=== PATIENT | female | born 1965 | race Hispanic/Latino ===

== ENCOUNTER 2017-05-22 12:00 | Emergency (ER) | payer MEDICAID ==
[2017-05-22 12:05] VITALS: BMI 29.2
[2017-05-22 12:45] LABS: BASO # 0.05 K/mm3 (0.0-2.0); BASO % 0.7 % (0.0-3.0); EOS # 0.1 (0.0-0.7); EOS % 1.5 % (1.5-5.0); GRAN # 4.49 (1.4-6.5); GRAN % 67.2 % (50.0-68.0); LYMPH # 1.6 (1.2-3.4); LYMPH % 24.5 % (22.0-35.0); MEAN CELL VOLUME 90.7 fl (80.0-105.0); MEAN CORPUSCULAR HEMOGLOBIN 32.6 pg (25.0-35.0); MEAN PLATELET VOLUME 10.9 fl (7.0-11.0); MONO # 0.4 (0.1-0.6); MONO % 6.1 % (1.0-6.0); WHITE BLOOD COUNT 6.7 10^3/ul (4.5-11.0)
[2017-05-22 12:54] LABS: URINE BILIRUBIN NEGATIVE (NEGATIVE); URINE BLOOD LARGE (NEGATIVE); URINE GLUCOSE (UA) NEGATIVE (NEGATIVE); URINE KETONE NEGATIVE (NEGATIVE); URINE LEUKOCYTE ESTERASE NEGATIVE Leu/uL (NEGATIVE); URINE PROTEIN 30 mg/dL (<30 mg/dL); URINE UROBILINOGEN 0.2 E.U./dL (<1 E.U./dL)
[2017-05-22 12:57] LABS: URINE COLOR YELLOW (YELLOW)
[2017-05-22 13:04] LABS: URINE APPEARANCE CLEAR (CLEAR); URINE WBC 0 - 2 /hpf (0-6)
[2017-05-22 13:05] LABS: URINE BACTERIA FEW (NEG)
--- NOTE | 2017-05-22 13:41 | CARD ---
APPROVED REPORT EKG Measurement Heart [id number] [id number] <Conclusion> Normal sinus rhythm PRWP NSSTW changes
--- NOTE | 2017-05-22 14:47 | ED PDOC ---
Arrival/HPI - General Chief Complaint: Chest Pain Time Seen by Provider: 05/22/17 12:08 Historian: Patient - History of Present Illness Narrative History of Present Illness (Text): 05/22/17 Mellisa Saravia is a 51 year old female, whose past medical history includes hypertension and COPD, who presents to the emergency department complaining of intermittent chest pain for several months. Patient reports also having a dry cough. She notes going to the PMD today who gave her an Aspirin and advised her to come to the emergency department for evaluation. Patient denies shortness of breath, fever, dizziness, or other complaints. Time/Duration: Other (several months) Symptom Course: Unchanged, Intermittent Past Medical History - Provider Review Nursing Documentation Reviewed: Yes - Tetanus Immunization Tetanus Immunization: Unknown - Reproductive Menopause: Yes - Cardiac Hx Cardiac Disorders: No Hx Hypertension: Yes - Pulmonary Hx Respiratory Disorders: Yes Hx Chronic Obstructive Pulmonary Disease (COPD): Yes Hx Emphysema: Yes - Neurological Hx Neurological Disorder: No - HEENT Hx HEENT Disorder: No - Renal Hx Renal Disorder: No - Endocrine/Metabolic Hx Endocrine Disorders: No Other/Comment: GOut - Hematological/Oncological Hx Blood Disorders: No - Integumentary Hx Dermatological Disorder: No - Musculoskeletal/Rheumatological Hx Musculoskeletal Disorders: No - Gastrointestinal Hx Diverticulitis: Yes - Genitourinary/Gynecological Hx Genitourinary Disorders: No - Psychiatric Hx Psychophysiologic Disorder: No Hx Depression: No Hx Emotional Abuse: No Hx Physical Abuse: No Hx Substance Use: No - Surgical History Hx Appendectomy: Yes Other/Comment: ectopic /colon. surgery for diverticulitis - Anesthesia Hx Anesthesia: Yes Hx Anesthesia Reactions: No - Suicidal Assessment Feels Threatened In Home Enviroment: No Family/Social History - Physician Review Nursing Documentation Reviewed: Yes Family/Social History: Unknown Family HX Smoking Status: Former Smoker Hx Alcohol Use: No Hx Substance Use: No Hx Substance Use Treatment: No Allergies/Home Meds Allergies/Adverse Reactions: Allergies levofloxacin Allergy (Verified 05/22/17 12:05) ANAPHYLAXIS Penicillins Allergy (Verified 05/22/17 12:05) ANAPHYLAXIS Home Medications: Home Meds Medication Instructions Recorded Confirmed Allopurinol [Zyloprim] 300 mg PO PRN PRN 03/12/16 05/22/17 Review of Systems - Physician Review All systems were reviewed & negative as marked: Yes - Review of Systems Constitutional: absent: Fevers Respiratory: Cough (dry). absent: SOB Cardiovascular: Chest Pain (intermittent for several months) Neurological: absent: Dizziness Physical Exam Vital Signs Reviewed: Yes Vital Signs Temp Pulse Resp BP Pulse Ox 05/22/17 16:43 75 20 132/87 96 05/22/17 16:00 98.9 F 90 20 143/92 H 97 05/22/17 14:13 72 20 130/88 98 05/22/17 12:10 69 22 146/86 95 Blood Pressure: Normal Pulse: Regular Respiratory Rate: Normal Appearance: Positive for: Well-Appearing, Non-Toxic, Comfortable Pain Distress: None Mental Status: Positive for: Alert and Oriented X 3 - Systems Exam Head: Present: Atraumatic, Normocephalic Pupils: Present: PERRL Extroacular Muscles: Present: EOMI Conjunctiva: Present: Normal Respiratory/Chest: Present: Clear to Auscultation, Good Air Exchange. No: Respiratory Distress, Accessory Muscle Use Cardiovascular: Present: Regular Rate and Rhythm, Normal S1, S2. No: Murmurs Abdomen: Present: Normal Bowel Sounds. No: Tenderness, Distention, Peritoneal Signs Lower Extremity: Present: Normal Inspection. No: Edema Neurological: Present: GCS=15, CN II-XII Intact, Speech Normal Skin: Present: Warm, Dry, Normal Color. No: Rashes Psychiatric: Present: Alert, Oriented x 3, Normal Insight, Normal Concentration Medical Decision Making ED Course and Treatment: 05/22/17 Impression: 51 year old female with intermittent chest pain for several months. Clear on physical exam. Plan: -- EKG -- Chest X-ray -- Labs -- Urinalysis -- Reassess and disposition Progress Notes: EKG: Ordered, reviewed, and independently interpreted the EKG. Rate : 66 BPM Rhythm : NSR Interpretation : No ST-segment elevations or depressions, no T-wave inversions, normal intervals. 05/22/17 16:44: Spoke to Dr. Franco who revised the case. Patient will be discharged and will call in 2 day to set up an appointment. Patient was advised to take baby aspirin daily. - Lab Interpretations Lab Results: 05/22/17 12:30 05/22/17 15:15 Lab Results 05/22/17 15:15: Sodium 140, Potassium 4.1, Chloride 105, Carbon Dioxide 28, Anion Gap 11, BUN 16, Creatinine 0.7, Est GFR ( Amer) > 60, Est GFR (Non- Af Amer) > 60, Random Glucose 88, Calcium 9.6, Magnesium 1.8, Total Bilirubin 1.0, AST 26, ALT 38, Alkaline Phosphatase 74, Lactate Dehydrogenase 517, Total Creatine Kinase 36, Troponin I < 0.01, Total Protein 7.2, Albumin 4.2, Globulin 2.9, Albumin/Globulin Ratio 1.5 05/22/17 12:44: Urine Color Yellow, Urine Appearance Clear, Urine pH 6.0, Ur Specific [place] 1.025, Urine Protein 30 H, Urine Glucose (UA) Negative, Urine Ketones Negative, Urine Blood Large H, Urine Nitrate Negative, Urine Bilirubin Negative, Urine Urobilinogen 0.2, Ur Leukocyte Esterase Negative, Urine RBC 10 - 15, Urine WBC 0 - 2, Ur Epithelial Cells 1 - 3, Urine Bacteria Few 05/22/17 12:30: WBC 6.7, RBC 4.63, Hgb 15.1, Hct 42.0, MCV 90.7, MCH 32.6, MCHC 36.0, RDW 14.0, Plt Count 224, MPV 10.9, Gran % 67.2, Lymph % (Auto) 24.5, [place] % (Auto) 6.1 H, Eos % (Auto) 1.5, Baso % (Auto) 0.7, Gran # 4.49, Lymph # 1.6, [place] # 0.4, Eos # 0.1, Baso # 0.05 I have reviewed the lab results: Yes - RAD Interpretation Radiology Orders: 05/22/17 12:13 CHEST PORTABLE [RAD] Stat Shook Splicer: Radiologist - EKG Interpretation Interpreted by ED Physician: Yes Type: 12 lead EKG - Scribe Statement The provider has reviewed the documentation as recorded by the Chetnaibindira Rodarte Provider Scribe Attestation: All medical record entries made by the Scribe were at my direction and personally dictated by me. I have reviewed the chart and agree that the record accurately reflects my personal performance of the history, physical exam, medical decision making, and the department course for this patient. I have also personally directed, reviewed, and agree with the discharge instructions and disposition. Disposition/Present on Arrival - Present on Arrival Any Indicators Present on Arrival: No History of DVT/PE: No History of Uncontrolled Diabetes: No Urinary Catheter: No History of Decub. Ulcer: No History Surgical Site Infection Following: None - Disposition Have Diagnosis and Disposition been Completed?: Yes Diagnosis: Non-cardiac chest pain, Cough Disposition: HOME/ ROUTINE Disposition Time: 14:45 Condition: GOOD Discharge Instructions (ExitCare): Chest Pain (ED) Additional Instructions: Thank you for letting us take care of you today. The emergency medical care you received today was directed at your acute symptoms. If you were prescribed any medication, please fill it and take as directed. It may take several days for your symptoms to resolve. Return to the Emergency Department if your symptoms worsen, do not improve, or if you have any other problems. Please contact your doctor or call one of the physicians/clinics you have been referred to that are listed on the Patient Visit Information form that is included in your discharge packet. Bring any paperwork you were given at discharge with you along with any medications you are taking to your follow up visit. Our treatment cannot replace ongoing medical care by a primary care provider (PCP) outside of the emergency department. Thank you for allowing the [facility] team to be part of your care today. Start taking a baby aspirin (81mg) a day. Follow up with Dr. Franco in 2 days for re-evaluation and further management. Prescriptions: Benzonatate [Tessalon Perle] 100 mg PO Q8 PRN #20 capsule PRN Reason: Cough Referrals: Tiburcio Franco MD [Primary Care Provider] - Follow up with primary Forms: [employer] (Swazi)
--- NOTE | 2017-05-22 14:55 | RAD ---
HISTORY: Chest pain. Portable study 14:54. COMPARISON: 07/28/2016 FINDINGS: LUNGS: Resolution of right upper lobe infiltrate seen previously. No active pulmonary disease. PLEURA: No significant pleural effusion identified, no pneumothorax apparent. CARDIOVASCULAR: Normal. OSSEOUS STRUCTURES: No significant abnormalities. VISUALIZED UPPER ABDOMEN: Normal. OTHER FINDINGS: None. IMPRESSION: No active disease.
[2017-05-22 15:35] LABS: ALB/GLOB RATIO 1.5 (1.1-1.8); ALKALINE PHOSPHATASE 74 U/L (38-126); ALT/SGPT 38 U/L (7-56); AST/SGOT 26 U/L (14-36); BLOOD UREA NITROGEN 16 mg/dL (7-21); CALCIUM 9.6 mg/dL (8.4-10.5); CARBON DIOXIDE 28 mmol/L (21-33); CHLORIDE 105 mmol/L (98-107); GFR AFRICAN-AMERICAN > 60; GLUCOSE,RANDOM 88 mg/dL (70-110); MAGNESIUM 1.8 mg/dL (1.7-2.2); POTASSIUM 4.1 mmol/L (3.6-5.0); SODIUM 140 mmol/L (132-148); TOTAL PROTEIN 7.2 g/dL (5.8-8.3)
[2017-05-22 15:46] LABS: TROPONIN I < 0.01 ng/mL
[2017-05-22 16:12] VITALS: TEMP 98.9
[2017-05-22 16:13] VITALS: RESP 20
[2017-05-22 16:44] VITALS: BP 132/87; PULSE 75; O2SAT 96
== END 2017-05-22 16:57 | disposition home or self-care (01) ==
LOC: ED 12:00
DX: R07.89 Other chest pain (principal); R05 Cough; I10 Essential (primary) hypertension; Z87.891 Personal history of nicotine dependence

== ENCOUNTER 2018-07-18 10:52 | Emergency (ER) | payer MEDICAID ==
[2018-07-18 10:53] VITALS: BMI 29.2
[2018-07-18 11:22] VITALS: TEMP 98.4
--- NOTE | 2018-07-18 12:28 | ED PDOC ---
Arrival/HPI - General Chief Complaint: Abdominal Pain Time Seen by Provider: 07/18/18 11:02 Historian: Patient - History of Present Illness Narrative History of Present Illness (Text): 07/18/18 12:21 53yo female with pmhx of hypertension and COPD who present with complaint of right sided lower back pain x 3days. States pain is sharp, constant and worse with movement. States her urine appeared "like it had blood in it 2days ago". +Urinary frequency. Report history of renal stone. States she took Naprosyn yesterday with some relieve. Report lifting a heavy mattress the day her pain started. Denies dysuria, focal weakness, fecal/urinary incontinence, fever, chills, abdominal pain, nausea, vomiting, diarrhea, any other complaint. Past Medical History - Provider Review Nursing Documentation Reviewed: Yes - Infectious Disease Hx of Infectious Diseases: None - Tetanus Immunization Tetanus Immunization: Unknown - Reproductive Menopause: No - Cardiac Hx Hypertension: Yes - Pulmonary Hx Chronic Obstructive Pulmonary Disease (COPD): Yes Hx Emphysema: Yes - Neurological Hx Neurological Disorder: No - HEENT Hx HEENT Disorder: No - Renal Hx Renal Disorder: No - Endocrine/Metabolic Hx Endocrine Disorders: No Other/Comment: GOut - Hematological/Oncological Hx Blood Disorders: No - Integumentary Hx Dermatological Disorder: No - Musculoskeletal/Rheumatological Hx Falls: No - Gastrointestinal Hx Diverticulitis: Yes - Genitourinary/Gynecological Hx Genitourinary Disorders: No - Psychiatric Hx Psychophysiologic Disorder: No Hx Depression: No Hx Emotional Abuse: No Hx Physical Abuse: No Hx Substance Use: No - Surgical History Other/Comment: ectopic /colon. surgery for diverticulitis - Anesthesia Hx Anesthesia Reactions: No Hx Malignant Hyperthermia: No - Suicidal Assessment Feels Threatened In Home Enviroment: No Family/Social History - Physician Review Nursing Documentation Reviewed: Yes Family/Social History: Unknown Family HX Smoking Status: Former Smoker Hx Alcohol Use: No Hx Substance Use: No Hx Substance Use Treatment: No Allergies/Home Meds Allergies/Adverse Reactions: Allergies levofloxacin Allergy (Verified 07/18/18 11:22) ANAPHYLAXIS Penicillins Allergy (Verified 07/18/18 11:22) ANAPHYLAXIS Home Medications: Home Meds Medication Instructions Recorded Confirmed RX: Allopurinol [Zyloprim] 300 mg PO PRN PRN 03/12/16 05/22/17 RX: Fluticasone Propionate 1 puff NEB TID PRN 06/08/18 06/08/18 [Clarispray] Review of Systems - Physician Review All systems were reviewed & negative as marked: Yes - Review of Systems Constitutional: Normal Eyes: Normal ENT: Normal Respiratory: Normal Cardiovascular: Normal Gastrointestinal: Normal Genitourinary Female: Normal Musculoskeletal: Back Pain Skin: Normal Neurological: Normal Endocrine: Normal Hemo/Lymphatic: Normal Psychiatric: Normal Physical Exam Vital Signs Reviewed: Yes Vital Signs Temp Pulse Resp BP Pulse Ox 07/18/18 11:18 98.4 F 85 16 162/119 H 100 Temperature: Afebrile Blood Pressure: Hypertensive Pulse: Regular Respiratory Rate: Normal Appearance: Positive for: Well-Appearing, Non-Toxic, Comfortable Pain Distress: None Mental Status: Positive for: Alert and Oriented X 3 - Systems Exam Head: Present: Atraumatic, Normocephalic Pupils: Present: PERRL Extroacular Muscles: Present: EOMI Conjunctiva: Present: Normal Mouth: Present: Moist Mucous Membranes Neck: Present: Normal Range of Motion Respiratory/Chest: Present: Clear to Auscultation, Good Air Exchange. No: Respiratory Distress, Accessory Muscle Use Cardiovascular: Present: Regular Rate and Rhythm, Normal S1, S2. No: Murmurs Abdomen: No: Tenderness, Distention, Peritoneal Signs Back: Present: Paraspinal Tenderness (Right sided paralumbar tenderness). No: Midline Tenderness, Pain with Leg Raise Upper Extremity: Present: Normal Inspection. No: Cyanosis, Edema Lower Extremity: Present: Normal Inspection. No: Edema Neurological: Present: GCS=15, CN II-XII Intact, Speech Normal Skin: Present: Warm, Dry, Normal Color. No: Rashes Psychiatric: Present: Alert, Oriented x 3, Normal Insight, Normal Concentration Medical Decision Making ED Course and Treatment: 07/18/18 19:12 PT present to ED for stated history. She was comfortable and in no distress in ED. Labs was unremarkable UA - +Blood. No UTI. PT notes that her last Menstruation was 2years ago. Abdominal/Pelvic CT IMPRESSION: There is minimal stranding of the mesenteric fat planes around the descending colon improved from the prior study. Findings are consistent with resolving diverticulitis Result was DW the pt. She was placed on abx secondary to the hematuria and urinary frequency. Referred to a Urologist. Pain was controlled and she was DC home with analgesic. - RAD Interpretation Radiology Orders: 07/18/18 11:43 ABD & PELVIS W/O PO OR IV CONT [CT] Stat Disposition/Present on Arrival - Present on Arrival Any Indicators Present on Arrival: No History of DVT/PE: No History of Uncontrolled Diabetes: No Urinary Catheter: No History of Decub. Ulcer: No History Surgical Site Infection Following: None - Disposition Have Diagnosis and Disposition been Completed?: Yes Diagnosis: Back pain, Hematuria Disposition: HOME/ ROUTINE Disposition Time: 13:40 Patient Plan: Discharge Condition: STABLE Discharge Instructions (ExitCare): Low Back Pain (DC) Additional Instructions: Follow up with your Doctor/Orthopedist Return to ED for any new or worsening symptoms Prescriptions: Cyclobenzaprine [Cyclobenzaprine HCl] 10 mg PO BID #10 tab Nitrofurantoin Macrocrystals [Macrobid] 100 mg PO BID #14 cap Referrals: Tiburcio Franco MD [Primary Care Provider] - Follow up with primary Ambrose Marrero MD [Staff Provider] - Follow up with primary Forms: [employer] (Malaysian)
[2018-07-18 12:33] LABS: URINE BILIRUBIN NEGATIVE (NEGATIVE); URINE BLOOD LARGE (NEGATIVE); URINE GLUCOSE (UA) NEGATIVE (NEGATIVE); URINE LEUKOCYTE ESTERASE NEGATIVE Leu/uL (NEGATIVE); URINE PROTEIN 100 mg/dL (<30 mg/dL); URINE UROBILINOGEN 0.2 E.U./dL (<1 E.U./dL)
[2018-07-18 12:42] LABS: URINE APPEARANCE CLEAR (CLEAR); URINE COLOR YELLOW (YELLOW)
[2018-07-18 12:42] LABS: BASO # 0.04 K/mm3 (0.0-2.0); BASO % 0.7 % (0.0-3.0); EOS # 0.1 (0.0-0.7); EOS % 1.7 % (1.5-5.0); GRAN # 4.08 (1.4-6.5); GRAN % 67.9 % (50.0-68.0); HEMOGLOBIN 14.1 g/dL (12.0-16.0); LYMPH # 1.5 (1.2-3.4); LYMPH % 24.2 % (22.0-35.0); MEAN CELL VOLUME 89.4 fl (80.0-105.0); MEAN CORPUSCULAR HEMOGLOBIN 31.3 pg (25.0-35.0); MEAN PLATELET VOLUME 10.3 fl (7.0-11.0); MONO # 0.3 (0.1-0.6); MONO % 5.5 % (1.0-6.0); RBC 4.51 10^6/uL (3.5-6.1)
[2018-07-18 12:43] VITALS: RESP 18
[2018-07-18 12:46] LABS: BLOOD UREA NITROGEN 18 mg/dL (7-21); GFR NON-AFRICAN AMERICAN > 60; INR 1.09; PARTIAL THROMBOPLASTIN TIME 29.3 Seconds (25.1-36.5); PROTHROMBIN TIME 12.6 SECONDS (9.4-12.5)
[2018-07-18 12:47] LABS: URINE BACTERIA MANY /hpf; URINE RBC 25 - 30 /hpf (0-2)
[2018-07-18 12:47] LABS: ALB/GLOB RATIO 1.6 (1.1-1.8); ALBUMIN 4.2 g/dL (3.0-4.8); ALT/SGPT 35 U/L (7-56); AST/SGOT 23 U/L (14-36); CALCIUM 9.5 mg/dL (8.4-10.5)
[2018-07-18 12:48] LABS: URINE AMORPHOUS SEDIMENT FEW /hpf; URINE FINE GRANULAR CAST 0 - 2 /hpf; URINE HYALINE CAST 0 - 2 /hpf
--- NOTE | 2018-07-18 13:32 | CT ---
Date of service: 07/18/2018 PROCEDURE: CT Abdomen and Pelvis without intravenous contrast HISTORY: right flank pain COMPARISON: 06/08/2018 CT TECHNIQUE: Without contrast.. Contrast dose: Radiation dose: Total exam DLP = 512.18 mGy-cm. This CT exam was performed using one or more of the following dose reduction techniques: Automated exposure control, adjustment of the mA and/or kV according to patient size, and/or use of iterative reconstruction technique. FINDINGS: LOWER THORAX: Unremarkable. LIVER: Unremarkable. No gross lesion or ductal dilatation. GALLBLADDER AND BILE DUCTS: Unremarkable. PANCREAS: Unremarkable. No gross lesion or ductal dilatation. SPLEEN: Unremarkable. ADRENALS: Unremarkable. No mass. KIDNEYS AND URETERS: Unremarkable. No hydronephrosis. No solid mass. VASCULATURE: Unremarkable. No aortic aneurysm. No aortic atherosclerotic calcification or mural plaque present. BOWEL: There is minimal stranding of the mesenteric fat planes around the descending colon improved from the prior study. Findings are consistent with resolving diverticulitis APPENDIX: Unremarkable. Normal appendix. PERITONEUM: Unremarkable. No free fluid. No free air. LYMPH NODES: Unremarkable. No enlarged lymph nodes. BLADDER: Unremarkable. REPRODUCTIVE: There is a right ovarian cyst measuring 22 x 36 mm. BONES: No acute fracture. OTHER FINDINGS: None. IMPRESSION: There is minimal stranding of the mesenteric fat planes around the descending colon improved from the prior study. Findings are consistent with resolving diverticulitis
[2018-07-18 14:03] VITALS: BP 150/92; PULSE 89; O2SAT 99
== END 2018-07-18 14:43 | disposition home or self-care (01) ==
LOC: ED 10:52
DX: M54.5 Low back pain (principal); R31.9 Hematuria, unspecified; I10 Essential (primary) hypertension; Z87.891 Personal history of nicotine dependence
CPT/HCPCS: 74176; 80053; 81001; 81025; 85025; 85610; 85730; 96374; 99285; J1885